=== PATIENT | female | born 1960 | race Hispanic/Latino ===

== ENCOUNTER 2016-12-07 05:44 | Day surgery (SDC) | payer OTHER ==
[2016-12-07] VITALS (14 sets, daily range): BP systolic 99–119; BP diastolic 54–73; PULSE 81–104; RESP 11–26; O2SAT 95–100
[~2016-12-07] VITALS: Ht 154.9 cm; Wt 64.1 kg
[2016-12-07] MEDS: Lactated Ringer's 1,000 ML IV SCH ×6 (05:00→21:48)
[~2016-12-07 05:44] MED LIST: CHOL500050 PO; CYCL5TAB PO; IBUP800T28 PO; MECL-114 PO; OXYC1TAB24 PO
[2016-12-07] MEDS ORDERED: Ondansetron 2 mg/mL 2 mL Inj ONE (05:45)
[2016-12-07] MEDS ORDERED: MetoCLOpramide 5 mg/mL 2 mL Inj ONE (05:45)
[2016-12-07] MEDS ORDERED: Propofol 10,000 mCg/mL 20 mL Inj ONE (05:45)
[2016-12-07] MEDS ORDERED: Morphine PF 1 mg/mL 10 mL Inj ONE (05:45)
[2016-12-07] MEDS ORDERED: Dexamethasone 4 mg/mL Inj ONE (05:45)
[2016-12-07] MEDS ORDERED: Ketamine 10 mg/mL 20 mL Inj ONE (05:45)
[2016-12-07] MEDS ORDERED: Rocuronium 10 mg/mL 5 mL Inj ONE (05:45)
[2016-12-07] MEDS ORDERED: CeFAZolin Inj 2 gm / 50mL D5W IV ONE (06:31)
[2016-12-07] MEDS ORDERED: vit d PO (06:38)
[2016-12-07 07:05] LABS: BASOPHILS % (AUTO) 0.5 % (0-3); EOSINOPHILS % (AUTO) 2.7 % (0-5); MONOCYTES % (AUTO) 6.6 % (4-12); Mean Corpuscular Hemoglobin 29.7 pg (27.0-35.0); Mean Corpuscular Volume 87.9 fL (81-100); NEUTROPHILS % (AUTO) 58.2 % (40-74); Platelet Count 315 bil/L (150-400)
[2016-12-07] MEDS ORDERED: Lactated Ringer's 1,000 ML IV SCH (07:20)
[2016-12-07] MEDS ORDERED: EPHEDrine Sulfate 50 mg/mL Inj IVPUSH PRN (07:20)
[2016-12-07] MEDS ORDERED: fentaNYL-PF 50 mCg/mL 2 mL Inj IVPUSH PRN (07:20)
[2016-12-07] MEDS ORDERED: HYDROmorphone 1 mg/mL Inj IVPUSH PRN (07:20)
[2016-12-07] MEDS ORDERED: Dexamethasone 4 mg/mL Inj IVPUSH PRN (07:20)
[2016-12-07] MEDS ORDERED: MetoCLOpramide 5 mg/mL 2 mL Inj IVPUSH PRN ×2 (07:20→11:10)
[2016-12-07] MEDS ORDERED: Lactated Ringer's 500 ML IV PRN (07:20)
[2016-12-07] MEDS ORDERED: Phenylephrine 10,000 mCg/mL Inj IVPUSH PRN (07:20)
[2016-12-07] MEDS ORDERED: Ondansetron 2 mg/mL 2 mL Inj IVPUSH PRN (07:20)
[2016-12-07] MEDS ORDERED: Labetalol 5 mg/mL 4 mL Inj IV PRN (07:20)
--- NOTE | 2016-12-07 07:20 | PCM.HPANE ---
Patient Data Surgeon Admitting Provider: Attending Provider:Mercedez Irving MD Primary Care Physician:Kings Other Provider:Denisse George Anesthesia Reason for Visit Left Ovarian Enlargement, Right Lower Quadrandt Ab Ht/WT & BMI Height (Feet): 5 Height (Inches): 1 Weight (Kilograms): 62.7 Body Mass Index 26.00 Allergies Coded Allergies: No Known Allergies (Unverified , 12/06/16) Past Anesthesia History Anesthesia History: Denies:: Anesthesia Reactions, Malignant Hyperthermia Diabetes History Hx Diabetes?: No MRSA MRSA: No Medications Home Meds Incl Beta Daniel: No Reported Medications [vit d] No Conflict Check1,000 Mg PO DAILY 12/07/16 oxyCODONE-Acetaminophen 5-325 mg 1 Each Tablet1 Tab PO Q6H PRN For Pain Ref 0 12/06/16 Meclizine (Bonine)25 Mg Tab.chew25 Mg PO TID PRN PRN 12/06/16 Ibuprofen 800 Mg Ucegeo160 Mg PO TID PRN For Pain Ref 0 12/06/16 Cyclobenzaprine 5 Mg Tablet5 Mg PO TID PRN Spasm 12/06/16 Discontinued Reported Medications Cholecalciferol (Vitamin D3) (Vitamin D3)50,000 Unit Otdrldg37,000 Unit PO WEEKLY 12/06/16 History History of ENT Problems?: No HEENT History: Denies:: Abnormal Airway Cataracts Difficult Intubation Dysphagia Glaucoma Hearing Problem Sinus Problem TMJ Denture Type: None Partial- Upper Teeth Condition: Within Normal Limits Hx of Heart Problems?: Yes Cardiovascular History: Positive for:: Chest Pain ("PRESSURE" R/T ANXIETY) Denies:: Heart Murmur Hypertension Hx of Respiratory Problem?: No Respiratory History: Denies:: Use of C-PAP Machine Hx Neurologic Problems?: Yes Neurological History: Positive for:: Dizziness Hx of GI Problems?: No Hx of Problems?: No HX of Peritoneal Dialysis: No Female Hx: Denies:: Currently (post menopause) Skin History: Denies:: History Skin Disorders? Pressure Ulcers Hx Musculoskeletal Problems?: Yes Musculoskeletal History: Positive for:: Musculoskeletal Trauma (S/P ORIF RT WRIST) Hx of Psycho/Social Problems?: Yes Psycho Social History: Positive for:: Anxiety (SITUATIONAL) Hx Surgeries?: Yes (DX LAP,ORIF RT WRIST) Hx Any Other Health Problems?: Yes Other History: Denies:: Cancer Endocrine Disease Hospitalization Thyroid Disease Hx Diabetes: No Stop/Bang Treated for Sleep Apnea?: No Do You Have a CPAP Machine?: No S-Snoring: Do You Snore Loudly: No T-Tired: feel tired, fatigued: No O-Obsered: Observed not breath: No P-Blood Pressure: treated: No B- Body Mass Index > 35 kg/m2: No A- Age over 50: Yes N- Neck Large Circumference: No G- Gender Male: No RODRIGO Total Score: 1 RODRIGO Risk Assessment: Low Risk, <3 Yes Risk Assessment Category Category 1A: Patient has history of documented sleep apnea, and HAS NOT received any narcotic, sedative or anesthesia administration during this stay. Category 1B: Patient has history of documented sleep apnea, and HAS received any narcotic , sedative or anesthesia administration during this stay Category 2: Patient has SUSPECTED Obstructive Sleep Apnea, and HAS received any narcotic , sedative or anesthesia administration during this stay. Category 3: Patient has SUSPECTED Obstructive Sleep Apnea and HAS NOT received narcotic, sedative or anesthesia administration during this stay. Category 4: Outpatient in Procedural Areas with known sleep apnea or who screen positive for High Risk via the STOP/BANG questionnaire. Exam Exam Vital Signs Vital Signs Date Time Temp Pulse Resp B/P Pulse Ox O2 Delivery O2 Flow Rate FiO2 12/07/16 06:23 36.2 94 12 119/73 97 Room Air General Appearance: Oriented X3 HEENT/AIRWAY: MP 2 Lungs: Normal Air Movement Heart: Regular Rate/Rhythm Meds/Labs/Diagnostics Admission Meds Current Medications Lactated Ringer's (Lr) 1,000 ml @ 120 mls/hr Q8H20M IV Last administered on t 06:01; Start 12/07/16 at 05:00; Stop 12/07/16 at 13:19 Labs Test 12/07/16 07:02 White Blood Count 4.4th/mm3 (3.8-10.1) Red Blood Count 4.48mil/mm3 (3.90-5.20) Hemoglobin 13.3g/dL (12.0-15.6) Hematocrit 39.4% (35.0-46.0) Mean Corpuscular Volume 87.9fL (81-100) Mean Corpuscular Hemoglobin 29.7pg (27.0-35.0) Mean Corpuscular Hemoglobin Concent 33.8% (32.0-37.0) Red Cell Distribution Width 13.8% (12.3-15.4) Platelet Count 315bil/L (150-400) Neutrophils (%) (Auto) 58.2% (40-74) Lymphocytes (%) (Auto) 31.8% (14-46) Monocytes (%) (Auto) 6.6% (4-12) Eosinophils (%) (Auto) 2.7% (0-5) Basophils (%) (Auto) 0.5% (0-3) Plan Impression Patient chart reviewed, patient interviewed and anesthestic plan with risks, benefits, and alternatives discussed, and informed consent obtained. ASA Physical Status: ASA2 Mod Systemic Disease Anesthetic Plan: GA, SAB Bene/Risks/Altern/Consents: Yes HP Complete Prior to Induction: Yes Darian Ramirez MD Dec 07, 2016 07:20
[2016-12-07] MEDS ORDERED: Bupivacaine-MPF 0.5% W/EPI 30 mL Inj INFILTRATE ONE (08:57)
[2016-12-07] MEDS ORDERED: Estrogens Conjugated 30 Gm Vaginal Cream VAGINAL ONE (10:37)
[2016-12-07] MEDS ORDERED: Alum-Mag Hydrox-Simeth 30 mL Suspension PO PRN (11:10)
[2016-12-07] MEDS ORDERED: Senna-Docusate 8.6-50 mg Tablet PO PRN (11:10)
--- NOTE | 2016-12-07 13:02 | PCM.ANEP1 ---
Post Anesthesia PACU Phase 1 Assessment Vital Signs Vital Signs Date Time Temp Pulse Resp B/P Pulse Ox O2 Delivery O2 Flow Rate FiO2 12/07/16 12:21 34.4 81 19 103/69 97 Room Air 12/07/16 11:54 94 15 109/63 97 Room Air 12/07/16 11:47 36.1 99 19 109/62 95 Room Air 12/07/16 11:42 16 96 12/07/16 11:41 104 17 108/66 95 Room Air 12/07/16 11:34 99 26 110/61 97 Room Air 12/07/16 11:25 84 11 104/54 100 Simple Mask 10 12/07/16 11:20 85 12 100/55 100 Simple Mask 10 12/07/16 11:15 91 15 101/56 100 Simple Mask 10 12/07/16 11:10 89 16 106/61 99 Simple Mask 10 12/07/16 11:05 36.1 91 15 109/59 99 Simple Mask 10 12/07/16 06:23 36.2 94 12 119/73 97 Room Air Anesthetic Administered: GA, SAB Level of Alertness: Sleepy, easy to arouse SCOTT's with Equal Strength: Yes Pain: No Nausea or Vomiting: No CV Function & Hydration Stable: Yes Airway Device: Oralpharangeal Airway Lungs: Normal Air Movement Dermatome Level: Full Sensation PACU Phase 2 Assessment Patient Instructions Provided: N/A Darian Ramirez MD Dec 07, 2016 13:02
--- NOTE | 2016-12-07 13:24 | NUR ---
POST-OP Received from PACU via a hospital bed. IVF ongoing. Dermabond noted in her abdomen from the puncture sites. IFC intact and draining to ellis colored UO. Denies pain. Clear liquids diet stared per per oders. Addendum: 12/07/16 at 1329 by CALE SHAH RN ... Clear liquids started per orders. Patient denies pain/nausea/ SOB. Oriented to room and call light.
[2016-12-07] MEDS: Ondansetron 2 mg/mL 2 mL Inj IVPUSH PRN ×3 (16:14→22:09)
[2016-12-07] MEDS: Senna-Docusate 8.6-50 mg Tablet PO SCH (20:30)
[2016-12-07] MEDS: Acetaminophen IV 1,000 MG in IV Premix 1 EACH IV PRN (22:33)
[2016-12-08 00:40] VITALS: BP 94/55; PULSE 89; RESP 16; O2SAT 97
--- NOTE | 2016-12-08 02:10 | NUR ---
Nausea/ Vomiting This evening patient tried to take a drink of sprite. States that she tolerated sprite better during day shift than water. Shortly after patient became nauseous. 4mg Zofran IVP given. After administration patient vomited, but shortly after stated that she felt better. Patient has not complained of nausea or vomiting since. Will continue to monitor, and continue Q1 hour checks.
[2016-12-08] MEDS: Lactated Ringer's 1,000 ML IV SCH ×2 (04:40→11:10)
[2016-12-08] MEDS: Acetaminophen IV 1,000 MG in IV Premix 1 EACH IV PRN (04:57)
[2016-12-08 05:20] LABS: BASOPHILS % (AUTO) 0.1 % (0-3); EOSINOPHILS % (AUTO) 0.1 % (0-5); MONOCYTES % (AUTO) 7.6 % (4-12); Mean Corpuscular Hemoglobin 29.1 pg (27.0-35.0); Mean Corpuscular Volume 89.3 fL (81-100); NEUTROPHILS % (AUTO) 78.1 % (40-74); Platelet Count 311 bil/L (150-400)
[2016-12-08 05:30] VITALS: BP 97/58; PULSE 80; RESP 16; O2SAT 100
--- NOTE | 2016-12-08 06:48 | OP ---
[address] [address] OPERATIVE REPORT PATIENT: FANY FAGAN : 1960 MR#: [id number] ADMIT: 12/07/2016 JOB ID: [id number] DATE OF SURGERY: 12/07/2016 PREOPERATIVE DIAGNOSIS(ES): Suspected ovarian fibroma. POSTOPERATIVE DIAGNOSIS(ES): Possible broad ligament fibroid. PROCEDURE: 1. Total laparoscopic hysterectomy with bilateral salpingo-oophorectomy. 2. Cystoscopy. 3. Removal of a left broad ligament fibroid. SURGEON: Mercedez Irving MD. CHARGE PREPARATION TECHNICIAN: Anai Beckwith MD, who was necessary for safe completion of the case. ANESTHESIA: General endotracheal anesthesia. ESTIMATED BLOOD LOSS: 30 cc. FLUID REPLACEMENT: 800 cc of crystalloid. COMPLICATIONS: None apparent. FINDINGS: Normal uterus, ovaries and fallopian tubes. A 5 cm broad ligament fibroid. INDICATIONS: This is a 56-year-old, G0 female who initially presented to our clinic for evaluation of right lower quadrant pain. This had been ongoing and in the workup for this, she had had some imaging studies which revealed a right lower quadrant possible ovarian fibroma. Given the findings, surgical removal was recommended. After discussing risks, benefits and alternatives to either an oophorectomy versus total laparoscopic hysterectomy and bilateral salpingo-oophorectomy with cystoscopy, she elected to proceed with the latter. She had never been . She was postmenopausal. She had previously had a laparotomy with myomectomy in the remote past. Risks, benefits and alternatives were discussed with her. She elected to proceed. DESCRIPTION OF PROCEDURE: The patient was brought to the operating room, where general endotracheal anesthesia was administered. She was placed in dorsal lithotomy position. Prepped and draped in the usual sterile fashion for the surgical procedure. A bivalved speculum was placed into the vagina, and her cervix was then grasped with a tenaculum. Her cervix was serially dilated to allow a VCare uterine manipulator to be placed and sounded to approximately 7 cm in length. The small VCare uterine manipulator was then placed. A Veliz catheter was inserted. Attention was then turned to the abdomen. After injection of local anesthetic infraumbilically, a Veress needle was then placed through the midline of the umbilicus. The abdomen was then insufflated with appropriately rising CO2 pressures. A 5 mm incision was then made infraumbilically and the laparoscope was inserted under direct visualization. There was noted to be a large amount of scar tissue and omentum that obscured any visualization into the pelvis. The right sidewall was noted to be free of adhesions and then, after injection of local anesthetic, a 5 mm port was then placed in the right lower quadrant under direct visualization. The left abdominal sidewall was also visualized around the adhesions, and a third port was then placed in the left lower quadrant under direct visualization after injection of local anesthetic. Using the Thunderbeat device, examination of the adhesions noted they seemed to be mostly infraumbilical. These were brought down using the Thunderbeat electrocautery allowing for appropriate visualization. The uterus was then examined and there were noted to be some adhesions from the omentum to the anterior abdominal wall from her previous myomectomy. These were taken down using the Thunderbeat cautery. An intra-abdominal survey revealed no entrance injuries, and her appendix was normal in appearance. Examination of the uterus revealed a 5 cm broad ligament, what was thought to be fibroid. Her ovaries were postmenopausal and otherwise normal, as were her fallopian tubes and uterus. Using the Thunderbeat starting at the left infundibulopelvic ligament, this was brought down using the cautery after coagulation and then transsection. The left ovary and fallopian tube were undermined and followed along the mesosalpinx back to the left cornua and transected using the Thunderbeat cautery. The broad ligament was then divided anterior and posterior sheaths and these were brought down to the level of the left uterine isthmus. The bladder flap was created by lifting the anterior peritoneum and this using the Thunderbeat cautery. At this point in time the ovarian fibroid was then from its base using the cautery device and was placed into the posterior cul-de-sac. Attention was then turned to the right side, and the right IP ligament was cauterized and transected. The mesosalpinx was undermined along the fallopian tube and beneath the ovary to the level of the right uterine cornua to appropriately transect the ovary and fallopian tube from the pelvic sidewall. The round ligament was then divided using the cautery and the anterior and posterior sheaths of the broad ligament were and brought down to the level of the uterine isthmus at which point in time, the right uterine arteries were then cauterized and transected. The bladder flap which had been created starting on the left side was then met with the cautery from the contralateral side. After the bladder flap was made and the bladder was thought to be appropriately reflected downward off of the lower uterine segment, the colpotomy incision was made using the Thunderbeat and this was carried along the periphery of the uterine manipulator following the vaginal cuff that had been placed before. After the uterus was completely transected from the vagina, the uterus and right fallopian tube and ovary were removed en bloc from the vagina. The left fallopian tube and ovary which had been at the cornua to allow for visualization earlier in the case were then removed. The broad ligament fibroid which had been placed into the posterior cul-de-sac was then removed as well through the vagina and sent to Pathology. A sponge in glove was placed into the vagina to allow for visualization with pneumoperitoneum, and attention was then turned to the vaginal cuff. The V-Loc suture was brought through the left lower quadrant port. A Yakov was used to grasp the vaginal cuff. The cuff was then closed in a running, nonlocking suture from the right cornua to the left and then brought back three stitches back through the midline at which point the suture was then cut along the vaginal cuff. The pelvis was then irrigated and was noted to be hemostatic. The ureters were identified at the start of the case and were noted to be far away from the field of operation. Pneumoperitoneum was then released from the abdomen. The skin was then closed with 4-0 Vicryl. Cystoscopy was then completed which revealed no bladder injuries and strong bilateral ureteral jets. The patient tolerated this procedure well. Recovered in PACU. All sponge, needle and instrument counts correct. EMANI
--- NOTE | 2016-12-08 07:29 | PCM.DIGYN ---
Surgical Discharge Instruction Dates of Hospitalization Date of Hospital Admission Providers Admitting Physician: Primary Care Physician: Kings Attending Physician: Mercedez Irving MD Diet Discharge Diet: No restrictions Activity Discharge Activity-General: Activity as pain allows, No lifting >10 pounds for 4-6 weeks, No driving while taking narcotic, Other (Pelvic rest and nothing in the vagina for 6-8 weeks ) Dressing and Incisional Care Hygiene: May shower, NO bathtub, hot tub or whirlpool Follow Up Plan Follow-up appointment: Weeks (2) Call your provider for: Fever, Chills, Shortness of breath, Drainage at incision, Heavy vaginal bleeding, Increasing pain Mercedez Irving MD Dec 08, 2016 07:29
[2016-12-08] MEDS: Senna-Docusate 8.6-50 mg Tablet PO SCH (09:59)
[2016-12-08] MEDS: oxyCODONE-Acetamin 5-325 mg Tablet PO PRN ×2 (10:04→15:33)
--- NOTE | 2016-12-08 10:39 | DIS ---
[address] [address] DISCHARGE SUMMARY PATIENT: FANY FAGAN : 1960 MR#: [id number] ADMIT: 12/07/2016 JOB ID: [id number] DIS: ADMISSION DIAGNOSIS: A 56-year-old female with left-sided ovarian mass. DISCHARGE DIAGNOSIS: A 56-year-old female with what appeared to be a left-sided broad ligament fibroid. PROCEDURES PERFORMED: Total laparoscopic hysterectomy, bilateral salpingo-oophorectomy, cystoscopy and removal of the left broad ligament fibroid. REASON FOR ADMISSION: This 56-year-old, G0 female presented to our clinic in evaluation of right lower quadrant pain. During the workup for this, there was an incidental finding of a solid ovarian mass thought to be an ovarian fibroma. Surgical removal was recommended. After discussing either a left salpingo-oophorectomy versus total laparoscopic hysterectomy with bilateral salpingo-oophorectomy, she was admitted on the 2nd to undergo the above-stated procedure. She desired to be monitored overnight in the hospital. She did not believe she would have appropriate nursing care at home to be discharged home on postop day zero. So, she was admitted. The surgery went well without any difficulty. Please see the operative report for full details. She was admitted to an observation bed overnight where she did well. On postoperative day #1, laboratory data returned which showed a white count of 10.5, hemoglobin 10.9 down from 13.3 preoperatively and platelet count of 311. She had some nausea on the evening of postoperative day #0 but this had resolved by postoperative day #1. Her Veliz catheter was discontinued, and she ambulated in her room. When her pain was well controlled, she was tolerating a regular diet, voiding and ambulating without difficulty, she was deemed stable for discharge. PHYSICAL EXAMINATION ON THE DAY OF DISCHARGE: On the day of discharge, her temperature was 36.8, her pulse is 80, respiratory rate is 16. Her blood pressure is 97/58. She is saturating 100% on room air. In general, she is awake, alert, oriented, in no acute distress. Heart shows regular rate and rhythm. Her abdomen is soft. It is appropriately tender and nondistended. Her incisions are clean, dry and intact, and she does have moderate ecchymoses around her infraumbilical port site. Her extremities show no tenderness or edema. INSTRUCTIONS AT DISCHARGE: The patient was advised to remain on pelvic rest for six weeks including no tampons, douching, or intercourse. She was asked to call with any signs or symptoms of infection including fever greater than 100.5 degrees, severe pain, malodorous vaginal discharge, or bleeding greater than a pad per hour. Medications at discharge included: 1. Percocet 5/325, 1-2 tabs p.o. q.4 h. p.r.n. pain, dispensed #30. 2. Ibuprofen 800 mg p.o. q.8 h. p.r.n. pain. These had been given to her in the clinic prior to her surgery. The Veliz catheter was removed on the morning of postoperative day #1. At the time of her examination, she had about 500 cc in the Veliz bag. She is deemed stable for discharge when meeting all postoperative goals.
[2016-12-08 15:31] VITALS: BP 113/71; PULSE 83; RESP 16; O2SAT 97
--- NOTE | 2016-12-08 16:09 | NUR ---
Discharge Pt discharged to home with spouse via private vehicle at 1610 hrs. VSS, PIV removed intact. No c/o pain. Pt able to void without problem. Pt denies nausea. All personal possessions sent with pt. Discharge and follow up instructions given to pt, and she expressed understanding.
--- NOTE | 2016-12-10 14:45 | PATH ---
SURGICAL PATHOLOGY Attending Physician:Mercedez Irving, CASE STATUS: Signed Out PATIENT NAME: FANY FAGAN PID: [id number] : 1960 DATE COLLECTED:12/07/2016 22:54 SPECIMEN: 1: Uterus +/- tubes/ovaries, except neoplastic, prolapse 2: Ovary +/- tube, non-tumor 3: Uterus, Fibroid (separate surgical procedure) CLINICAL HISTORY: BROAD LIGAMENT FIBROID 1). UTERUS, RIGHT FALLOPIAN TUBE AND OVARY 2). OVARY AND LEFT FALLOPIAN TUBE 3). BROAD LIGAMENT FIBROID FINAL DIAGNOSIS: 1.UTERUS, RIGHT FALLOPIAN TUBE, AND OVARY: UTERUS, FALLOPIAN TUBE, AND OVARY WITH NO PATHOLOGIC ALTERATIONS. 2.OVARY AND LEFT FALLOPIAN TUBE: FALLOPIAN TUBE WITH BENIGN PARATUBAL CYST. OVARY WITH NO PATHOLOGIC ALTERATIONS. 3.BROAD LIGAMENT FIBROID: HYALINIZED LEIOMYOMA. NO EVIDENCE OF MALIGNANCY. ICD10 N83.9 D28.2 GROSS DESCRIPTION: The specimens are received in formalin, labeled with the patient's name, and sublabeled as the following: (1) uterus, right fallopian tube and ovary; (2) left ovary and fallopian tube; (3) broad ligament fibroid. (1) The specimen consists of a uterus (37 g, 2.7 cm AP, 6.2 cm SI, 4.5 cm ML) with an attached right ovary (2.8 x 1.7 x 1.0 cm) and fimbriated fallopian tube (length-5.2 cm, diameter-0.5 cm). The left ovary and fallopian tube are absent. The cervix (2.0 cm AP, 2.4 cm ML) has a round os and patent endocervical canal. The endometrium (average thickness-0.1 cm) is singh smooth and flat. The myometrium (thickness-1.2 cm) is singh-white and unremarkable. The serosa is singh smooth and shiny. The ovary has montelongo yellow smooth shiny bosselated serosa. The parenchyma is singh-white solid firm with corpus albicans identified. The fallopian tube has purple-montelongo smooth shiny serosa and a singh unremarkable lumen. Section code: (1A) anterior cervix; (1B) posterior cervix; (1C, 1D) anterior endomyometrium; (1E, 1F) posterior endomyometrium; (1G) ovary, serially sectioned, benefits representative; (1H) fallopian tube, serially sectioned, benefits representative; (1I) fimbria, bivalved, entirely submitted. (2) The specimen consists of an ovary (2.7 x 1.0 x 0.6 cm) with an attached fimbriated fallopian tube (length-5.2 cm, diameter-0.5 cm). The ovary has singh-yellow smooth shiny serosa. The parenchyma is singh-white solid firm with corpus albicans identified. The fallopian tube has purple-montelongo smooth shiny serosa and a singh unremarkable lumen. Section code: (2A) ovary, serially sectioned and, benefits representative; (2B) fallopian tube, serially sectioned, benefits representative; (2C) fimbria, bivalved, entirely submitted. (3) The specimen consists of a pale yellow-white solid firm mass (28.6 g, 4.5 x 3.8 x 3.0 cm) with a white whorled homogenous cut surface. Section code: (3A, 3B) mass, benefits representative. 12/09/16 JM MICRO DESCRIPTION: See diagnosis. ICD-9 CODES: CPT CODES: 1: 46824 2: 78315 3: 70779 Electronically Signed Out Alice Watson MD [facility] Pathology [facility] [address], [place] [address] Technical component performed at [facility], [address] [place] [address] Ave[address], [place], [address]
== END 2016-12-08 16:11 | disposition home or self-care (01) ==
LOC: SAS 05:44 → OSC 12:05 → SAS 12-08 16:11
PROVIDERS: ATTEND Obstetrics & Gynecology
DX: N83.8 Other noninflammatory disorders of ovary, fallopian tube and broad ligament (principal); R10.31 Right lower quadrant pain; D28.2 Benign neoplasm of uterine tubes and ligaments
CPT/HCPCS: 36415; 58552; 58662; 85025; J0131; J0690; J1100; J1200; J1885; J2250; J2274; J2405; J2765; J7120